=== PATIENT | male | born 1980 | race Caucasian/White ===

== ENCOUNTER 2023-07-21 05:19 | Emergency (ER) | payer OTHER ==
[~2023-07-21] VITALS: Ht 165.1 cm; Wt 74.8 kg
[2023-07-21] MEDS ORDERED: GUAIFENESIN/D-METHORPHAN HB 5 ML UDC ONE (06:33)
[2023-07-21] MEDS ORDERED: KETOROLAC TROMETHAMINE INJ 30 MG/ML VIAL ONE (06:34)
[2023-07-21] MEDS: KETOROLAC TROMETHAMINE INJ 30 MG/ML VIAL IM ONE (06:39)
[2023-07-21] MEDS: GUAIFENESIN/D-METHORPHAN HB 5 ML UDC PO ONE (06:39)
[2023-07-21] MEDS ORDERED: GUAI1TBM19 PO (07:59)
[2023-07-21] MEDS ORDERED: KETO10TA2 PO (07:59)
[2023-07-21] MEDS ORDERED: CYCL5TAB PO (07:59)
[2023-07-21] MEDS ORDERED: BENZ-13 PO (07:59)
[2023-07-21 08:07] VITALS: BP 142/78; TEMP 98.2; O2SAT 100
== END 2023-07-21 08:08 | disposition home or self-care (01) ==
LOC: ER 05:23
DX: J06.9 Acute upper respiratory infection, unspecified (principal); R05.9 Cough, unspecified; M54.6 Pain in thoracic spine; Z88.0 Allergy status to penicillin
CPT/HCPCS: 99283; 71045; 96372; J1885